=== PATIENT | female | born 1940 | race Two or more races ===

== ENCOUNTER 2022-12-11 04:22 | Day surgery (SDC) | payer OTHER ==
[2022-12-10 16:52] VITALS: BMI 28.3
[~2022-12-11 04:22] MED LIST: ACETAMINOPHEN 325 MG TABLET (FP) PO PRN
[2022-12-11] MEDS ORDERED: CYCLOPENTOLATE HCL 1% OPHTH SOLN 2 ML BOTTLE ONE (09:55)
[2022-12-11] MEDS ORDERED: TROPICAMIDE 1% OPHTH SOLN 15 ML BOTTLE ONE (09:55)
[2022-12-11] MEDS ORDERED: KETOROLAC TROMETHAMINE 0.5% EYE DROP 1 DROP DROPS ONE (09:55)
[2022-12-11] MEDS ORDERED: OFLOXACIN 0.3% OPHTHALMIC SOLUTION 5 ML BOTTLE ONE (09:56)
[2022-12-11] MEDS: OFLOXACIN 0.3% OPHTHALMIC SOLUTION 5 ML BOTTLE OP SCH ×3 (10:20→10:37)
[2022-12-11] MEDS: KETOROLAC TROMETHAMINE 0.5% EYE DROP 1 DROP DROPS OP SCH ×3 (10:20→10:37)
[2022-12-11] MEDS: CYCLOPENTOLATE HCL 1% OPHTH SOLN 2 ML BOTTLE OP SCH ×3 (10:20→10:37)
[2022-12-11] MEDS: TROPICAMIDE 1% OPHTH SOLN 15 ML BOTTLE OP SCH ×3 (10:20→10:37)
[2022-12-11] MEDS: PHENYLEPHRINE 2.5% OPHTH SOLN 15 ML BOTTLE OP SCH ×3 (10:20→10:37)
[2022-12-11] MEDS ORDERED: PHENYLEPHRINE 2.5% OPTHALMIC DROP 2ML BOTTLE ONE (10:21)
[2022-12-11] MEDS ORDERED: MIDAZOLAM HCL 2 MG/2 ML SINGLE DOSE VIAL ONE (12:31)
[2022-12-11] MEDS ORDERED: TETRACAINE 0.5% OPHTH SOLN 2 ML BOTTLE OS ONE (12:31)
[2022-12-11] MEDS ORDERED: POVIDONE-IODINE 5% OPHTHALMIC PREP 30 ML SOLUTION OS ONE (12:32)
[2022-12-11] MEDS ORDERED: BSS (NA/CA/MG/K) BALANCED SALT SOLUTION OPHTH SOLN 15 ML BOTTLE IO ONE (12:38)
[2022-12-11] MEDS ORDERED: LIDOCAINE HCL 1% PRESERVATIVE FREE - 30ML VIAL IO ONE (12:39)
[2022-12-11] MEDS ORDERED: CHONDROITIN SU A/HYALUR SOD 1 KIT IO ONE (12:40)
[2022-12-11] MEDS ORDERED: EPINEPHrine/PF 1 MG/1 ML (1:1,000) AMPULE SQ ONE (12:45)
[2022-12-11 13:57] VITALS: RESP 18
[2022-12-11 15:05] VITALS: BP 118/70; PULSE 63; TEMP 97.2
== END 2022-12-11 14:25 | disposition home or self-care (01) ==
LOC: JASU-SURG 04:22
PROVIDERS: ATTEND Ophthalmology
PROC: 08RK3JZ Replacement of Left Lens with Synthetic Substitute, Percutaneous Approach (ICD-10-PCS; principal; 2022-12-11 12:00)
DX: H26.9 Unspecified cataract (principal)
CPT/HCPCS: V2632

== ENCOUNTER 2023-12-02 04:14 | Day surgery (SDC) | payer OTHER ==
[2023-11-27 16:07] VITALS: BMI 33.7
[2023-12-02 10:01] VITALS: TEMP 98.2
[2023-12-02 10:16] VITALS: RESP 18
[2023-12-02 10:34] VITALS: PULSE 68
[2023-12-02 10:35] VITALS: BP 120/79
== END 2023-12-02 10:36 | disposition home or self-care (01) ==
LOC: JASU-ENDO 04:14
PROVIDERS: ATTEND Internal Medicine Gastroenterology
PROC: 0DJD8ZZ Inspection of Lower Intestinal Tract, Via Natural or Artificial Opening Endoscopic (ICD-10-PCS; principal; 2023-12-02 09:15)
DX: Z12.11 Encounter for screening for malignant neoplasm of colon (principal); K57.30 Diverticulosis of large intestine without perforation or abscess without bleeding; K64.8 Other hemorrhoids; Z86.010 Personal history of colon polyps

== ENCOUNTER 2023-12-09 03:58 | Day surgery (SDC) | payer OTHER ==
[2023-12-04 12:46] VITALS: BMI 31.4
[2023-12-09 08:54] VITALS: TEMP 97.7
[2023-12-09 09:22] VITALS: PULSE 54; RESP 18
[2023-12-09 09:23] VITALS: BP 132/84
== END 2023-12-09 09:40 | disposition home or self-care (01) ==
LOC: JASU-ENDO 03:58
PROVIDERS: ATTEND Internal Medicine Gastroenterology
PROC: 0DB78ZX Excision of Stomach, Pylorus, Via Natural or Artificial Opening Endoscopic, Diagnostic (ICD-10-PCS; 2023-12-09)
PROC: 0DB68ZX Excision of Stomach, Via Natural or Artificial Opening Endoscopic, Diagnostic (ICD-10-PCS; principal; 2023-12-09 08:30)
DX: K29.50 Unspecified chronic gastritis without bleeding (principal); K31.A0 Gastric intestinal metaplasia, unspecified; K44.9 Diaphragmatic hernia without obstruction or gangrene; I10 Essential (primary) hypertension
CPT/HCPCS: 88305-TC; 88342-TC